=== PATIENT | male | born 1970 | race Caucasian/White ===

== ENCOUNTER 2020-01-24 23:07 | Emergency (ER) | payer MEDICAID ==
[~2020-01-24] VITALS: Ht 180.3 cm; Wt 81.8 kg
[2020-01-24 23:16] VITALS: Ht 180.3 cm; Wt 81.8 kg
[2020-01-25 00:16] LABS: microscopic required? YES; urine erythrocyte 1+ (NEGATIVE)
[2020-01-25 00:17] LABS: BASOPHIL % 0.4 % (0-2); PLATELET COUNT 130 x10^3mcL (130-400)
[2020-01-25 00:18] LABS: RED CELL DISTRIBUTION WIDTH 14.8 % (11.5-14.5)
[2020-01-25 00:51] LABS: ALKALINE PHOSPHATASE 97 U/L (46-116); ALT/SGPT 188 U/L (16-63); AST/SGOT 141 U/L (15-37); BILIRUBIN TOTAL 0.3 mg/dL (0.20-1.00); CARBON DIOXIDE 30.4 mmol/L (21-32); CHLORIDE SERUM 100 mmol/L (98-107); CREATININE SERUM 1.3 mg/dL (0.7-1.3); GFR1 > 60 mL/min; GLUCOSE SERUM 102 mg/dL (74-106); POTASSIUM SERUM 4.8 mmol/L (3.5-5.1); SODIUM SERUM 135 mmol/L (136-145); TOTAL PROTEIN, SERUM 6.6 g/dL (6.4-8.2)
[2020-01-25 01:40] VITALS: BP 96/64
== END 2020-01-25 01:40 | disposition home or self-care (01) ==
LOC: ED 23:07
PROVIDERS: Emergency Medicine
DX: R50.9 Fever, unspecified (principal); R51 Headache; R63.0 Anorexia
CPT/HCPCS: 36415; 87804; Q0092